=== PATIENT | male | born 1995 | race African-American/Black ===

== ENCOUNTER 2020-04-16 15:20 | Emergency (ER) | payer BC ==
[~2020-04-16] VITALS: Ht 180.3 cm; Wt 113.4 kg
--- NOTE | ~2020-04-16 | EMS ---
[place] [id number] EMS Patient Care Report Name: JAMES DOZIER Room #: DEP JAMIL [place]#: [id number] Admission: 04/16/20 Attend Phys: Discharge: 04/16/20 Date of : [birth year] Report #: [id number] THIS REPORT FOR: //name// Report Transmitted: 04/16/2020 22:11 EMS Care Summary [facility] MED-ACT Incident [id number] @ 04/16/2020 14:43 Incident Location [address] [place] [address] pacu -[address] [place] [address] Patient JAMES DOZIER Male, 24 Years 1995 [facility] [place] [address] Patient History Asthma,Gastro-Esophageal Reflux Disease (GERD), Patient Medications Albuterol, Chief Complaint Pt. has sharp chest pain. Disposition Transported No Lights/[place] Reason Chest Pain (Non-Traumatic) Transported To [facility] Narrative Arrived to find a 24 yr old alert male patient sitting up in bed in the PACU after surgery on his left hand to clean out two infected fingers in no obvious acute distress complaining of chest pain. Patient went to [facility] today to have surgery on his left pinky and ring finger to clean out an infection. The surgery lasted about an hour and his airway was maintained [address] [address] EMS Patient Care Report Name: JAMES DOZIER [id number] Admission: 04/16/20 Attend Phys: Discharge: 04/16/20 Date of : [birth year] Report #: [id number] with an LMA. Shortly after waking up from the anesthesia the patient was instructed to blow into an inspirometer. When the patient did that he found it hard to breathe and started having chest pain in the middle of his chest under his sternum that made and "L" shape and went towards his left pectoral. The patient was given a GI cocktail in case it was GERD, a nebulizer treatment, a chest x-ray was performed and returned negative, two 25 mcg doses of Fentanyl IV, Valium and Toradol, Ketamine and propofol to try to reverse him and nothing would make his pain better. Patient stated some of the medication made him "really high." Patient is rating his pain about an "8" on a 0 to 10 scale and states it is sharp and it is worse with palpation. Staff is requesting the patient be transported to the hospital for additional diagnostics to R/O a PE. Patient had a negative COVID-19 test prior to undergoing the surgical procedure. A: See assessment tab. Physical exam. Vital signs. We used the bed sheet to transfer the patient from the PACU bed to the cot. Moved to unit. En route to [facility]. Vital signs and ECG were monitored during transport. 12-lead ECG acquired during transport. We contacted [facility] on the [facility] and the patient had no changes to his condition during transport. Patient was alert with stable vital signs upon arrival at [facility] and report was given to an ED RN in room 8 at [facility]. Patient was able to self transfer from the cot to the hospital bed. Patient's physician arranged transport to [facility] . Initial Vitals @15:14P: 78,R: 20,BP: 150/118,Pain: 6/10,GCS: 15,SpO2: 99,Revised Trauma: 12,VT Suspected: false @15:06P: 82,R: 16,BP: 153/81,Pain: 8/10,GCS: 15,SpO2: 98,Revised Trauma: 12,VT Suspected: false @PTAP: 61,R: 22,BP: 112/61,GCS: 15,Temp: 98F,SpO2: 94,Revised Trauma: 12, Assessments @15:10MENTAL:Person Oriented,Event Oriented,Time Oriented,Place Oriented,SKIN:HEENT:LUNG SOUNDS:ABDOMEN:PELVIS//GI:EXTREMITIES:Left Arm: Other,Right Arm: No Abnormalities,Left Leg: No Abnormalities,Right Leg: No Abnormalities,PULSE:Radial: 2+ Normal,NEURO:No Abnormalities, Impression Chest Pain, Other (Non-Cardiac) [address] [address] EMS Patient Care Report Name: JAMES DOZIRE Room #: DEP JAMIL [place]#: [id number] Admission: 04/16/20 Attend Phys: Discharge: 04/16/20 Date of : [birth year] Report #: [id number] Procedures @15:1412-Lead ECGResponse: UnchangedSucceeded@PTASurgical Mask on PatientResponse: Unchanged@PTANormal Saline (.9% NaCl) - Cold 0cc () Site: Forearm-RightResponse: Unchanged Timeline TRUST OFFICER,Surgical Mask on Patient,Response: Unchanged TRUST OFFICER,Normal Saline (.9% NaCl) - Cold 0cc Site: Forearm-Right,Response: Unchanged TRUST OFFICER,BP: 112/61 M,PULSE: 61,RR: 22 R,SPO2: 94 Ox,ETCO2: ,BG: ,PAIN: ,GCS: 15, 14:41,Call Received 14:41,Psap Call 14:43,Dispatched 14:44,En Route 14:50,On Scene 14:53,At Patient 15:06,BP: 153/81 M,PULSE: 82,RR: 16 R,SPO2: 98 Ox,ETCO2: ,BG: ,PAIN: 8,GCS: 15, 15:08,Depart Scene 15:14,12-Lead ECG,Response: UnchangedSucceeded, 15:14,BP: 150/118 M,PULSE: 78,RR: 20 R,SPO2: 99 Ox,ETCO2: ,BG: ,PAIN: 6,GCS: 15, 15:15,At Destination 15:40,Call Closed Disclaimer v1.1 Copyright 2020 [employer] This EMS Care Summary contains data elements from the applicable legal record (which may be displayed differently). It is designed to provide pertinent information for the following purposes: continuity of care, clinical quality, and state data reporting. The complete legal record is available to ED staff and administrators of the receiving hospital in [employer]'s Patient Tracker. All data is provided "as is."
[2020-04-16 16:04] LABS: ABSOLUTE NEUTROPHILS 5.3 thou/uL (1.4-8.2); BASOPHILS 0.4 % (0.0-2.0); EOSINOPHILS 0.1 % (0.0-3.0); HEMATOCRIT 45.1 % (42.0-52.0); HEMOGLOBIN 15.1 gm/dL (14.0-18.0); MCH 28.3 pg (26.0-34.0); MCHC 33.4 g/dL (28.0-37.0); MCV 84.7 fL (80.0-100.0); MONOCYTES 1.1 % (1.0-8.0); PLATELET COUNT 225 thou/uL (150-400); POLYS 88.4 % (36.0-66.0); RBC 5.33 mil/uL (4.50-6.00); WBC 5.9 thou/uL (4.0-11.0)
[2020-04-16 16:24] LABS: ANION GAP 6 mmol/L (7-16); BUN 14 mg/dL (7-18); CALCIUM 8.8 mg/dL (8.5-10.1); CHLORIDE 103 mmol/L (98-107); CO2 26 mmol/L (21-32); CREATININE 1.1 mg/dL (0.7-1.3); GLUCOSE 127 mg/dL (74-106); POTASSIUM 3.8 mmol/L (3.5-5.1); SODIUM 135 mmol/L (136-145)
[2020-04-16 16:35] LABS: ALBUMIN 3.6 g/dL (3.4-5.0); SGOT 34 U/L (15-37); SGPT 49 U/L (16-63); TOTAL BILIRUBIN 0.4 mg/dL (0.2-1.0); TOTAL PROTEIN 7.4 g/dL (6.4-8.2); TROPONIN-I <0.06 ng/mL (<0.06)
[2020-04-16] MEDS ORDERED: PEPCID20 MG PO (17:59)
[2020-04-16 18:15] VITALS: BP 134/79
--- NOTE | 2020-04-17 09:03 | EKG ---
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
== END 2020-04-16 18:15 | disposition home or self-care (01) ==
LOC: ER 15:20
PROVIDERS: Emergency Medicine
DX: R07.89 Other chest pain (principal); Z20.828 Contact with and (suspected) exposure to other viral communicable diseases; F17.210 Nicotine dependence, cigarettes, uncomplicated; Z98.890 Other specified postprocedural states

== ENCOUNTER 2020-08-24 13:14 | Emergency (ER) | payer BC ==
[~2020-08-24] VITALS: Ht 180.3 cm; Wt 113.4 kg
[~2020-08-24 13:14] MED LIST: PEPCID20 MG PO
[2020-08-24 13:50] LABS: URINE BILIRUBIN NEGATIVE (Negative); URINE BLOOD NEGATIVE (Negative); URINE CLARITY CLEAR; URINE COLOR YELLOW; URINE GLUCOSE-RANDOM* NEGATIVE (Negative); URINE KETONES NEGATIVE (Negative); URINE LEUKOCYTES-REFLEX NEGATIVE (Negative); URINE NITRITE-REFLEX NEGATIVE (Negative); URINE PROTEIN (DIPSTICK) NEGATIVE (Negative); URINE UROBILINOGEN 0.2 E.U./dl (0.2-1.0)
[2020-08-24] MEDS ORDERED: cipro PO (13:51)
[2020-08-24] MEDS ORDERED: NORCO5 PO (13:52)
[2020-08-24] MEDS ORDERED: DOXYCYCLINE 10100 MG PO (15:58)
[2020-08-24] MEDS ORDERED: BACTRIM DS TAB1 EACH PO (15:58)
[2020-08-24 16:31] VITALS: BP 131/60
== END 2020-08-24 17:00 | disposition home or self-care (01) ==
LOC: ER 13:14
PROVIDERS: Emergency Medicine
DX: N50.3 Cyst of epididymis (principal); F17.210 Nicotine dependence, cigarettes, uncomplicated; Z88.0 Allergy status to penicillin

== ENCOUNTER 2021-03-29 16:19 | Emergency (ER) | payer BC ==
[~2021-03-29] VITALS: Ht 180.3 cm; Wt 113.4 kg
[~2021-03-29 16:19] MED LIST changes: +BACTRIM DS TAB1 EACH PO; +DOXYCYCLINE 10100 MG PO; +NORCO5 PO; +cipro PO
[2021-03-29 17:28] LABS: URINE BILIRUBIN NEGATIVE (Negative); URINE BLOOD NEGATIVE (Negative); URINE CLARITY CLEAR; URINE COLOR YELLOW; URINE GLUCOSE-RANDOM* TRACE (Negative); URINE KETONES NEGATIVE (Negative); URINE LEUKOCYTES-REFLEX NEGATIVE (Negative); URINE NITRITE-REFLEX NEGATIVE (Negative); URINE PROTEIN (DIPSTICK) NEGATIVE (Negative); URINE SPECIFIC GRAVITY 1.025 (1.005-1.035); URINE UROBILINOGEN 0.2 E.U./dl (0.2-1.0)
[2021-03-29 19:22] VITALS: BP 144/74
== END 2021-03-29 19:15 | disposition left against medical advice (07) ==
LOC: ER 16:19
PROVIDERS: Emergency Medicine; Nurse Practitioner
DX: M54.6 Pain in thoracic spine (principal); M54.50 Low back pain, unspecified; R10.11 Right upper quadrant pain; R10.31 Right lower quadrant pain; F17.210 Nicotine dependence, cigarettes, uncomplicated; Z88.0 Allergy status to penicillin; Z79.899 Other long term (current) drug therapy